=== PATIENT | female | born 1985 | race Caucasian/White ===

== ENCOUNTER 2017-03-04 15:39 | Emergency (ER) | payer OTHER ==
[~2017-03-04] VITALS: Ht 172.7 cm; Wt 93.5 kg
[~2017-03-04 15:39] MED LIST: DARV PO; IBUP-238 PO; PREN0.01 PO
[2017-03-04 15:40] VITALS: BP 128/68; PULSE 85; RESP 15; TEMP 97.3; O2SAT 98
--- NOTE | 2017-03-04 16:00 | PD ---
Physical Exam Time Seen by Provider: 15:58 Narrative 32yo F c/o lower abd and low back pain since Saturday. Reports dysuria, and frequency. Denies vaginal dc. Has been seen by PCP and negative for UTI's. Patient stable. Patient seen in triage. Awaiting bed placement. Data Data Last Documented VS Vital Signs Date Time Temp Pulse Resp B/P Pulse Ox O2 Delivery O2 Flow Rate FiO2 03/04/17 15:40 97.3 85 15 128/68 98 MDM Supervised Visit with AMARILIS: Fatuma Cordon Mar 04, 2017 16:00
[2017-03-04] MEDS ORDERED: KETOROLAC TROMETHAMINE 60 MG/2 ML (IM) VIAL IM ONE (17:00)
[2017-03-04] MEDS ORDERED: ORPHENADRINE INJ 60 MG/2 ML AMP IM ONE (17:00)
--- NOTE | 2017-03-04 17:35 | PD ---
HPI Chief Complaint: Abdominal Pain Time Seen by Provider: 16:40 Travel History International Travel<30 days: No Contact w/Intl Traveler<30days: [place] Country Traveled to: 3.5 Traveled to known affect area: No History of Present Illness HPI Patient is a 32-year-old female presenting to emergency for evaluation of bilateral lower back pain that radiates around to her abdomen. Patient states it started on Saturday of last week, she denies any previous injury or trauma. She denies any dysuria, vaginal discharge, pelvic pain or cramping. She further denies any fevers, chills, nausea, vomiting, chest pain or shortness of breath. She has been taking 2 Aleve in the morning which has helped her symptoms but not completely resolve them. [facility] Past Medical History Anxiety: Yes Depression: Yes Diabetes: No Patient Takes Glucophage: No Diminished Hearing: No Tetanus Vaccination: < 5 Years ?: Not LMP: 25 February 2017 : 2 Para: 2 Ectopic : No Ovarian Cysts: Yes (bilateral, coping with oral control) Dilation and Curettage (D&C): No Tubal Ligation: No Past Surgical History Section: No Hysterectomy: No Social History Alcohol Use: Yes (weekly) Tobacco Use: No Substance Use: No Allergies-Medications (Allergen,Severity, Reaction): Coded Allergies: Adhesives (Verified Allergy, Severe, TAPE, 03/04/17) Latex (Verified Allergy, Unknown, 03/04/17) Reported Meds & Prescriptions Reported Meds & Active Scripts Active Reported Darvocet-N 100 (Propoxyphene Napsylate/Acetam) Tab 1 Tab PO Q4HPRN FOR PAIN Motrin (Ibuprofen) 800 Mg Tab 800 Mg PO Q8HPRN Vit ( Plus) (Prenat Multivit/[place]/Iron/Folic Ac) Tab 1 Tab PO DAILY Review of Systems Except as stated in HPI: all other systems reviewed are Neg Musculoskeletal: Positive: Myalgias, Cramping, Pain Physical Exam Narrative GENERAL: Well-developed, well-nourished, alert female SKIN: Focused skin assessment warm/dry. HEAD: Atraumatic. Normocephalic. EYES: Pupils equal and round. No scleral icterus. No injection or drainage. ENT: No nasal bleeding or discharge. Mucous membranes pink and moist. NECK: Trachea midline. No JVD. CARDIOVASCULAR: Regular rate and rhythm. No murmur appreciated. RESPIRATORY: No accessory muscle use. Clear to auscultation. Breath sounds equal bilaterally. GASTROINTESTINAL: Abdomen soft, non-tender, nondistended. Hepatic and splenic margins not palpable. Bowel sounds, no rebound, no guarding. MUSCULOSKELETAL: No obvious deformities. No clubbing. No cyanosis. No edema. Tenderness to palpation in paraspinal musculature in the lumbar region bilaterally. NEUROLOGICAL: Awake and alert. No obvious cranial nerve deficits. Motor grossly within normal limits. Normal speech. PSYCHIATRIC: Appropriate mood and affect; insight and judgment normal. Data Data Last Documented VS Vital Signs Date Time Temp Pulse Resp B/P Pulse Ox O2 Delivery O2 Flow Rate FiO2 03/04/17 15:40 97.3 85 15 128/68 98 Orders Urinalysis - C+S If Indicated (03/04/17 16:51) Ketorolac Inj (Toradol Inj) (03/04/17 17:00) Orphenadrine Inj (Norflex Inj) (03/04/17 17:00) Labs Laboratory Tests Test 03/04/17 16:50 Urine Color LIGHT-YELLOW Urine Turbidity CLEAR Urine pH 6.0 Urine Specific [place] 1.004 Urine Protein NEG mg/dL Urine Glucose (UA) NEG mg/dL Urine Ketones NEG mg/dL Urine Occult Blood NEG Urine Nitrite NEG Urine Bilirubin NEG Urine Urobilinogen LESS THAN 2.0 MG/DL Urine Leukocyte Esterase NEG Urine RBC 1 /hpf Urine WBC 1 /hpf Urine Squamous Epithelial 2 /hpf Cells Urine Bacteria RARE /hpf Microscopic Urinalysis Comment CULT NOT INDICATED MDM Medical Decision Making Medical Screen Exam Complete: Yes Emergency Medical Condition: Yes Interpretation(s) Vital Signs Date Time Temp Pulse Resp B/P Pulse Ox O2 Delivery O2 Flow Rate FiO2 03/04/17 15:40 97.3 85 15 128/68 98 Differential Diagnosis UTI versus strain versus sprain versus spasm versus discogenic pain versus other Narrative Course Patient is a 32-year-old female presenting to emergency for evaluation of low back pain that started on Saturday with no injury or trauma preceding it. Patient has 2 small children at home, she is a 4-year-old that she has lifting. Physical examination appears most consistent with lumbar strain, we'll check urinalysis to rule out UTI. Patient was given Toradol and Norflex in the meantime. We'll reevaluate. She reports improvement after administration of Toradol and Norflex. Patient's urinalysis was not indicative of UTI. Patient was encouraged to trial conservative management this time. She was encouraged to follow-up with [facility] and her primary doctor for further evaluation. She was encouraged to return to emergency department for any new or worsening symptoms. Patient verbalized understanding of these instructions. Patient is stable for discharge. Diagnosis Primary Impression: Strain of lumbar paraspinal muscle Qualified Code: S39.012A - Strain of lumbar paraspinal muscle, initial encounter Referrals: [facility] Phys[facility] Patient Instructions: Acute Low Back Pain (ED), General Instructions, Muscle Spasm (ED), Muscle Strain (ED) Additional Instructions: Follow-up with her primary doctor and follow up with [facility] Take medications as directed Apply warm moist heat to the affected area, continue range of motion exercises, avoid bed rest, avoid exacerbating activities Return to emergency department for any new or worsening symptoms Med/Other Pt SpecificInfo: Prescription(s) given Scripts Cyclobenzaprine (Flexeril)10 Mg Tab10 Mg PO TID PRN (MUSCLE SPASM) 10 Days Ref 0 Prov:Meseret Tripathi 03/04/17 Ibuprofen 800 Mg [id number] Mg PO Q6HR PRN (PAIN) #40 TAB Ref 0 Prov:Meseret Tripathi 03/04/17 Disposition: 01 DISCHARGE HOME Condition: Stable Meseret Tripathi Mar 04, 2017 17:35
[2017-03-04 17:38] LABS: BACTERIA, URINE RARE /hpf; BLOOD, URINE NEG (NEG); COMMENT (UR) CULT NOT INDICATED; CULTURE IF INDICATED CULT NOT INDICATED; GLUCOSE,URINE NEG (NEG); KETONE, URINE NEG (NEG); NITRITE,URINE NEG (NEG); SQUAMOUS EPITHELIAL CELL URINE 2 /hpf (0-5); URINE COLOR LIGHT-YELLOW (YELLW/STRAW)
[2017-03-04] MEDS ORDERED: IBUP800T23 PO (18:19)
[2017-03-04] MEDS ORDERED: CYCL1TAB29 PO (18:19)
== END 2017-03-04 18:31 | disposition home or self-care (01) ==
LOC: NEPD 15:39
DX: S39.012A Strain of muscle, fascia and tendon of lower back, initial encounter (principal); X58.XXXA Exposure to other specified factors, initial encounter; Y93.9 Activity, unspecified; Y99.9 Unspecified external cause status
CPT/HCPCS: 81001; 96372; 99283; J1885; J2360